=== PATIENT | male | born 1950 | race Caucasian/White ===

== ENCOUNTER 2020-03-29 08:51 | Inpatient (IN) | payer MEDICARE, OTHER ==
[~2020-03-29] VITALS: Ht 172.7 cm; Wt 84.4 kg
[2020-03-29] MEDS ORDERED: MAGNESIUM 2 G PREMIX 50 ML IV STA (09:02)
[2020-03-29] MEDS ORDERED: ALBUTEROL (0.083%) 2.5MG/3ML NEB HHN STA (09:02)
[2020-03-29] MEDS ORDERED: METHYLPREDNISOLONE SOD SUCC 125 MG/2 ML VIAL IV STA (09:02)
[2020-03-29] MEDS ORDERED: IPRATROPIUM BROMIDE (0.02%) 0.5MG/2.5ML NEB HHN STA (09:02)
[2020-03-29 09:32] LABS: BASOPHILS % 0.2 % (0.0-2.0); EOSINOPHILS % 0.2 % (0.0-5.0); HEMATOCRIT. 46.1 % (42.0-52.0); HEMOGLOBIN. 15.4 g/dL (14.0-18.0); LYMPHOCYTES % 12.2 % (20.0-50.0); MEAN CORPUSCULAR VOLUME 86.7 fL (80.0-94.0); MEAN PLATELET VOLUME 8.7 fl (7.4-10.4); MONOCYTES % 6.5 % (2.0-8.0); NEUTROPHILS % 80.9 % (40.0-76.0); PLATELET 148 x1000/uL (130-400); RED BLOOD CELL COUNT 5.31 mill/uL (4.7-6.1); RED CELL DISTRIBUTION WIDTH 14.2 % (11.6-14.6)
[2020-03-29 09:39] LABS: INR 1.1; PROTHROMBIN TIME 11.4 sec (9.6-11.0)
[2020-03-29 09:47] LABS: CHLORIDE 101 mEq/L (98-107)
[2020-03-29] MEDS ORDERED: AZITHROMYCIN 500 MG in DEXT 5% WATER 250 ML IV STA (09:58)
[2020-03-29] MEDS ORDERED: ONDANSETRON HCL 4MG/2ML INJ IV ONE (10:00)
[2020-03-29] MEDS ORDERED: CEFTRIAXONE 1 G PREMIX 50 ML IV ONE (10:00)
[2020-03-29] MEDS ORDERED: ALBUTEROL (0.083%) 2.5MG/3ML NEB ONE (10:12)
[2020-03-29] MEDS ORDERED: ALBUTEROL (0.5%) 2.5MG/0.5ML NEB HHN ONE (10:12)
[2020-03-29] MEDS ORDERED: IPRATROPIUM BROMIDE (0.02%) 0.5MG/2.5ML NEB ONE (10:13)
[2020-03-29 12:58] LABS: CLARITY URINE CLEAR (CLEAR); COLOR URINE DARK YELLOW (YELLOW); KETONES URINE 1+ (NEGATIVE); LEUKOCYTE ESTERASE URINE TRACE (NEGATIVE); NITRITE URINE NEGATIVE (NEGATIVE); OCCULT BLOOD URINE NEGATIVE (NEGATIVE); PROTEIN URINE TRACE (NEGATIVE); SPECIFIC GRAVITY URINE 1.026 (1.005-1.030); UROBILINOGEN URINE >8.0 E.U./dL (0.2-1.0)
[2020-03-29] MEDS ORDERED: ONDANSETRON HCL 4MG/2ML INJ IV PRN (14:00)
[2020-03-29] MEDS ORDERED: ACETAMINOPHEN 325MG TABLET PO PRN (14:00)
[2020-03-29] MEDS: ENOXAPARIN 40MG/0.4ML SYR SUBCUT SCH (15:43)
[2020-03-29 21:00] LABS: T4 FREE 1.33 ng/dL (0.76-1.46)
[2020-03-30] MEDS ORDERED: CEFTRIAXONE 1 G PREMIX 50 ML IV SCH (09:00)
[2020-03-30] MEDS ORDERED: AZITHROMYCIN 250 MG TABLET PO SCH (09:00)
[2020-03-30] MEDS: ENOXAPARIN 40MG/0.4ML SYR SUBCUT SCH (09:51)
[2020-03-30] MEDS ORDERED: P20 PO (11:06)
[2020-03-30 12:00] VITALS: BP 127/84
[2020-03-30] MEDS ORDERED: AZIT250T12 MT (17:54)
[2020-03-30] MEDS ORDERED: DEXA6TAB MT (17:54)
[2020-03-30 18:17] VITALS: BP 125/77
== END 2020-03-30 20:28 | disposition home or self-care (01) | DRG 177 ==
LOC: ER 09:00 → EDBEDREQ 10:04 → MICUSO 11:18 → EDBEDREQ 11:37 → 7EST 03-30 10:04
PROVIDERS: ADMIT Internal Medicine; ATTEND Internal Medicine
DX: U07.1 COVID-19 (principal); J96.01 Acute respiratory failure with hypoxia; J12.82 Pneumonia due to coronavirus disease 2019; E44.1 Mild protein-calorie malnutrition; E87.2 Acidosis; J45.901 Unspecified asthma with (acute) exacerbation; E87.1 Hypo-osmolality and hyponatremia; Z20.822 Contact with and (suspected) exposure to COVID-19; Z68.28 Body mass index [BMI] 28.0-28.9, adult; J39.8 Other specified diseases of upper respiratory tract
CPT/HCPCS: 36415; 71045; 80053; 81003; 83605; 83880; 84145; 84439; 84443; 84481; 84484; 85025; 93005; 94640; 99291; C9803; J0456; J0696; J1650; J2405; J2930; J3475; J7060; U0003

== ENCOUNTER 2024-11-24 10:15 | Inpatient (IN) | payer MEDICARE, MEDICAID ==
[~2024-11-24] VITALS: Ht 172.7 cm; Wt 79.0 kg
[~2024-11-24 10:15] MED LIST: AZIT250T12 MT; DEXA6TAB MT
[2024-11-24] MEDS: ASPIRIN 81MG TABLET PO ONE (10:31)
[2024-11-24 10:35] LABS: BASOPHILS % 0.8 % (0.0-2.0); EOSINOPHILS % 0.1 % (0.0-5.0); HEMATOCRIT. 24.0 % (42.0-52.0); HEMOGLOBIN. 7.3 g/dL (14.0-18.0); LYMPHOCYTES % 14.7 % (20.0-50.0); MEAN PLATELET VOLUME 8.6 fl (7.4-10.4); MONOCYTES % 4.6 % (2.0-8.0); NEUTROPHILS % 79.8 % (40.0-76.0); PLATELET 133 x1000/uL (130-400); RED BLOOD CELL COUNT 4.00 mill/uL (4.7-6.1); RED CELL DISTRIBUTION WIDTH 18.8 % (11.6-14.6)
[2024-11-24 10:37] LABS: ADD RBC MORPHOLOGY YES
[2024-11-24 10:50] LABS: CREATININE 0.9 mg/dL (0.6-1.3); UREA NITROGEN BLOOD 11 mg/dL (9-23)
[2024-11-24 10:51] LABS: TROPONIN I HIGH SENSITIVITY < 4 ng/L (3.0-53)
[2024-11-24 10:52] LABS: ASPARTATE AMINOTRANSFERASE 15 IU/L (<34); BILIRUBIN DIRECT 0.3 mg/dL (<=3.0); BILIRUBIN TOTAL 0.8 mg/dL (0.1-1.0); PROTEIN TOTAL 6.5 g/dL (6.0-8.3)
[2024-11-24 11:49] LABS: PLATELET ESTIMATE NORMAL
[2024-11-24] MEDS: SODIUM CHLORIDE 0.9% 500 ML IV ONE (13:09)
[2024-11-24 13:20] LABS: TROPONIN I HIGH SENSITIVITY < 4 ng/L (3.0-53)
[2024-11-24] MEDS ORDERED: LISI10TA26 PO (13:54)
[2024-11-24] MEDS ORDERED: TAMS-54 (13:54)
[2024-11-24] MEDS ORDERED: ACETAMINOPHEN 325MG TABLET PO PRN (14:00)
[2024-11-24] MEDS ORDERED: IPRATROPIUM/ALBUTEROL 0.5-3(2.5)MG/3ML NEB HHN PRN (14:00)
[2024-11-24] MEDS ORDERED: CLONIDINE 0.1MG TABLET PO PRN (14:00)
[2024-11-24 14:15] VITALS: BP 117/62; PULSE 58; RESP 20; TEMP 36.6; O2SAT 100
[2024-11-24 14:33] LABS: TRIGLYCERIDE 54 mg/dL (0-150)
[2024-11-24 14:34] LABS: LDL CHOLESTEROL 92 mg/dL (5-100)
[2024-11-24 14:35] LABS: PHOSPHORUS 1.6 mg/dL (2.5-4.9)
[2024-11-24 14:37] LABS: T4 FREE 1.11 ng/dL (0.89-1.76)
[2024-11-24 16:00] VITALS: BP 113/65; PULSE 77; RESP 18; TEMP 36.3; O2SAT 99
[2024-11-24 20:08] VITALS: BP 119/59; PULSE 97; RESP 20; TEMP 36.5; O2SAT 98
[2024-11-24] MEDS: IPRATROPIUM/ALBUTEROL 0.5-3(2.5)MG/3ML NEB HHN SCH (20:20)
[2024-11-24 20:33] VITALS: PULSE 60; RESP 20; O2SAT 100
[2024-11-24] MEDS ORDERED: BRIM15DR8 EACHEYE (21:03)
[2024-11-24] MEDS ORDERED: FINA1TAB14 PO (21:03)
[2024-11-24] MEDS: ENOXAPARIN 40MG/0.4ML SYR SUBCUT SCH (21:40)
[2024-11-24] MEDS: SODIUM PHOSPHATE 15 MMOL in DEXT 5% WATER 245 ML IV SCH (21:40)
[2024-11-24] MEDS ORDERED: *PATIENT'S OWN MEDICATION STORAGE XX SCH (23:00)
[2024-11-25] VITALS (29 sets, daily range): BP systolic 101–140; BP diastolic 59–96; PULSE 57–97; RESP 15–31; TEMP 36–37.44744; O2SAT 94–100
[2024-11-25 07:51] LABS: CLARITY URINE CLEAR (CLEAR); COLOR URINE YELLOW (YELLOW); GLUCOSE URINE NEGATIVE (NEGATIVE); KETONES URINE NEGATIVE (NEGATIVE); LEUKOCYTE ESTERASE URINE NEGATIVE (NEGATIVE); NITRITE URINE NEGATIVE (NEGATIVE); OCCULT BLOOD URINE NEGATIVE (NEGATIVE); PH URINE 6.0 (4.5-8.0); PROTEIN URINE NEGATIVE (NEGATIVE); SPECIFIC GRAVITY URINE 1.016 (1.005-1.030); UROBILINOGEN URINE 1.0 E.U./dL (0.2-1.0)
[2024-11-25 07:56] LABS: BASOPHILS % 1.0 % (0.0-2.0); EOSINOPHILS % 7.0 % (0.0-5.0); LYMPHOCYTES % 25.9 % (20.0-50.0); MONOCYTES % 12.8 % (2.0-8.0); NEUTROPHILS % 53.3 % (40.0-76.0); RED BLOOD CELL COUNT 3.78 mill/uL (4.7-6.1); RED CELL DISTRIBUTION WIDTH 19.1 % (11.6-14.6)
[2024-11-25 08:07] LABS: *AMPHETAMINES SCREEN URINE NEGATIVE (NEGATIVE); *BARBITURATES SCREEN URINE NEGATIVE (NEGATIVE); *BENZODIAZEPINES SCREEN URINE NEGATIVE (NEGATIVE); *COCAINE SCREEN URINE NEGATIVE (NEGATIVE); CANNABINOID URINE SCREEN NEGATIVE (NEGATIVE); ECSTASY MDMA SCREEN URINE NEGATIVE (NEGATIVE); METHADONE URINE SCREEN NEGATIVE (NEGATIVE); OPIATES URINE SCREEN NEGATIVE (NEGATIVE); PHENCYCLIDINE URINE SCREEN NEGATIVE (NEGATIVE)
[2024-11-25 08:11] LABS: CREATININE 0.9 mg/dL (0.6-1.3); HEMOGLOBIN. 6.8 g/dL (14.0-18.0); TROPONIN I HIGH SENSITIVITY 4 ng/L (3.0-53)
[2024-11-25 08:12] LABS: ADD RBC MORPHOLOGY NO; HEMATOCRIT. 22.5 % (42.0-52.0); UREA NITROGEN BLOOD 12 mg/dL (9-23)
[2024-11-25 09:30] LABS: MEAN PLATELET VOLUME 9.3 fl (7.4-10.4)
[2024-11-25 09:31] LABS: PLATELET 120 x1000/uL (130-400)
[2024-11-25] MEDS: FERROUS SULFATE 325MG TABLET PO SCH (09:40)
[2024-11-25] MEDS ORDERED: METOPROLOL TARTRATE 5MG/5ML VIAL IV PRN ×2 (09:45→12:30)
[2024-11-25] MEDS: METHYLPREDNISOLONE SOD SUCC 125MG/2ML (ACT-O-VIAL) IV SCH (13:12)
[2024-11-25] MEDS: LORATADINE 10MG TABLET PO SCH (13:12)
[2024-11-25] MEDS: MONTELUKAST SODIUM 10MG TABLET PO SCH (13:13)
[2024-11-25] MEDS: FAMOTIDINE 20MG/2ML VIAL IV SCH (13:13)
[2024-11-25 13:18] LABS: TRIGLYCERIDE 78.0 mg/dL (0-150)
[2024-11-25 13:19] LABS: LDL CHOLESTEROL 82.0 mg/dL (5-100)
[2024-11-25 13:22] LABS: T4 FREE 1.23 ng/dL (0.89-1.76)
[2024-11-25] MEDS: ONDANSETRON HCL 4MG/2ML INJ IV PRN (13:27)
[2024-11-25] MEDS: IPRATROPIUM/ALBUTEROL 0.5-3(2.5)MG/3ML NEB HHN SCH (15:03)
[2024-11-25] MEDS: FUROSEMIDE 20MG/2ML VIAL IVP NR (19:04)
[2024-11-25 19:12] LABS: CREATINE KINASE MB FRACTION 1.1 ng/mL (0.5-3.6)
[2024-11-25 19:13] LABS: TROPONIN I HIGH SENSITIVITY 4.0 ng/L (3.0-53)
[2024-11-25 22:29] LABS: CREATINE KINASE MB FRACTION 1.1 ng/mL (0.5-3.6); TROPONIN I HIGH SENSITIVITY < 4 ng/L (3.0-53)
[2024-11-26] VITALS (22 sets, daily range): BP systolic 100–151; BP diastolic 58–111; PULSE 61–95; RESP 11–31; TEMP 36.6–36.9; O2SAT 95–100
[2024-11-26 05:40] LABS: CREATINE KINASE MB FRACTION 1.2 ng/mL (0.5-3.6)
[2024-11-26 05:41] LABS: CREATININE 0.9 mg/dL (0.6-1.3); TROPONIN I HIGH SENSITIVITY < 4 ng/L (3.0-53); UREA NITROGEN BLOOD 13 mg/dL (9-23)
[2024-11-26 05:53] LABS: BASOPHILS % 0.1 % (0.0-2.0); EOSINOPHILS % 0.0 % (0.0-5.0); HEMATOCRIT. 28.8 % (42.0-52.0); HEMOGLOBIN. 8.9 g/dL (14.0-18.0); LYMPHOCYTES % 7.8 % (20.0-50.0); MEAN PLATELET VOLUME 9.0 fl (7.4-10.4); MONOCYTES % 2.2 % (2.0-8.0); NEUTROPHILS % 89.9 % (40.0-76.0); PLATELET 115 x1000/uL (130-400); RED BLOOD CELL COUNT 4.55 mill/uL (4.7-6.1); RED CELL DISTRIBUTION WIDTH 22.4 % (11.6-14.6)
[2024-11-26 06:50] LABS: ADD RBC MORPHOLOGY NO
[2024-11-26] MEDS: IRON SUCROSE COMPLEX 100 MG/5 ML ML IV SCH (09:53)
[2024-11-26] MEDS: IOHEXOL-350 100 ML BOTTLE ONE (11:39)
[2024-11-26] MEDS ORDERED: METHYLPREDNISOLONE SOD SUCC 40MG/ML (ACT-O-VIAL) IV SCH (14:00)
[2024-11-26] MEDS: METHYLPREDNISOLONE SOD SUCC 40MG/ML (ACT-O-VIAL) IV SCH (21:47)
[2024-11-27] VITALS (16 sets, daily range): BP systolic 99–135; BP diastolic 58–82; PULSE 61–86; RESP 10–27; TEMP 36.2–36.8; O2SAT 93–98
[2024-11-27 05:45] LABS: HEMATOCRIT. 27.1 % (42.0-52.0); HEMOGLOBIN. 8.6 g/dL (14.0-18.0); RED BLOOD CELL COUNT 4.32 mill/uL (4.7-6.1); RED CELL DISTRIBUTION WIDTH 21.6 % (11.6-14.6)
[2024-11-27 05:53] LABS: CREATININE 0.9 mg/dL (0.6-1.3)
[2024-11-27 05:54] LABS: UREA NITROGEN BLOOD 15 mg/dL (9-23)
[2024-11-27 05:56] LABS: PHOSPHORUS 2.9 mg/dL (2.5-4.9)
[2024-11-27 11:27] LABS: MEAN PLATELET VOLUME 9.8 fl (7.4-10.4); PLATELET 138 x1000/uL (130-400)
[2024-11-27 11:31] LABS: LYMPHOCYTES % MANUAL 4.0 % (20.0-50.0); MONOCYTES % MANUAL 2.0 % (2.0-8.0); NEUTROPHILS % MANUAL 94.0 % (45.0-75.0)
[2024-11-27 11:32] LABS: PLATELET ESTIMATE NORMAL
[2024-11-28] VITALS (21 sets, daily range): BP systolic 110–170; BP diastolic 68–108; PULSE 55–79; RESP 13–29; TEMP 36.4–36.78072; O2SAT 93–98
[2024-11-28 08:23] LABS: PLATELET 152 x1000/uL (130-400); RED BLOOD CELL COUNT 4.59 mill/uL (4.7-6.1); RED CELL DISTRIBUTION WIDTH 22.8 % (11.6-14.6)
[2024-11-28 08:37] LABS: CREATININE 0.8 mg/dL (0.6-1.3)
[2024-11-28 08:38] LABS: UREA NITROGEN BLOOD 14 mg/dL (9-23)
[2024-11-28] MEDS: METHYLPREDNISOLONE SOD SUCC 40MG/ML (ACT-O-VIAL) IV SCH (08:48)
[2024-11-28] MEDS: LOSARTAN 25 MG TABLET PO SCH (08:49)
[2024-11-28] MEDS ORDERED: HEPARIN 1000 UNITS/ML 10ML ONE (09:00)
[2024-11-28] MEDS ORDERED: VERAPAMIL HCL 2.5 MG/1 ML 2ML VIAL IV ONE (09:00)
[2024-11-28] MEDS ORDERED: LIDOCAINE HCL 1% 20ML VIAL ONE (09:00)
[2024-11-28] MEDS ORDERED: LOSARTAN 25 MG TABLET PO SCH (09:00)
[2024-11-28] MEDS ORDERED: IODIXANOL 320MG/ML 100 ML BOTTLE IV ONE ×2 (09:01→10:28)
[2024-11-28] MEDS ORDERED: NITROGLYCERIN 0.4MG TABLET SL SL PRN (09:15)
[2024-11-28] MEDS ORDERED: MIDAZOLAM HCL 2 MG/2 ML VIAL ONE (09:39)
[2024-11-28] MEDS ORDERED: FENTANYL CITRATE/PF 50MCG/ML 2ML VIAL ONE (09:39)
[2024-11-28] MEDS ORDERED: METOPROLOL TARTRATE 5MG/5ML VIAL IV ONE (10:28)
[2024-11-28] MEDS ORDERED: ATROPINE SULFATE 1MG/10ML SYR IV PRN (11:00)
[2024-11-28] MEDS: SODIUM CHLORIDE 0.45% 1,000 ML IV SCH (11:30)
[2024-11-28] MEDS: METOPROLOL TARTRATE 25MG TABLET PO SCH (12:19)
[2024-11-28] MEDS: EPOETIN ALFA-EPBX 10,000 UNITS/ML VIAL SUBCUT NR (12:20)
[2024-11-28] MEDS ORDERED: AMIODARONE HCL 900 MG in DEXT 5% WATER 482 ML IV SCH (13:30)
[2024-11-28 19:01] LABS: CLARITY URINE CLEAR (CLEAR); COLOR URINE YELLOW (YELLOW); GLUCOSE URINE NEGATIVE (NEGATIVE); KETONES URINE NEGATIVE (NEGATIVE); LEUKOCYTE ESTERASE URINE NEGATIVE (NEGATIVE); NITRITE URINE NEGATIVE (NEGATIVE); OCCULT BLOOD URINE NEGATIVE (NEGATIVE); PH URINE 8.5 (4.5-8.0); PROTEIN URINE NEGATIVE (NEGATIVE); SPECIFIC GRAVITY URINE 1.028 (1.005-1.030); UROBILINOGEN URINE 1.0 E.U./dL (0.2-1.0)
[2024-11-28] MEDS: DOCUSATE SODIUM 100MG CAPSULE PO SCH (20:51)
[2024-11-28] MEDS: ACETAMINOPHEN 325MG TABLET PO PRN (20:51)
[2024-11-28] MEDS: ALLOPURINOL 300 MG TABLET PO SCH (20:54)
[2024-11-28] MEDS: ASCORBIC ACID 500 MG TABLET PO SCH (20:54)
[2024-11-28] MEDS ORDERED: BISACODYL 10MG SUPP PR PRN (21:00)
[2024-11-28] MEDS: CHLORHEXIDINE GLUCONATE 4% EXTERNAL USE TOP SCH (21:34)
[2024-11-28] MEDS: TAMSULOSIN HCL 0.4MG SR CAPSULE PO SCH (23:04)
[2024-11-28] MEDS: LOSARTAN 25 MG TABLET PO NR (23:05)
[2024-11-29] VITALS (57 sets, daily range): BP systolic 101–143; BP diastolic 60–94; PULSE 45–90; RESP 14–33; TEMP 36.44736–37.8; O2SAT 93–100
[2024-11-29 04:14] LABS: HEMATOCRIT. 35.2 % (42.0-52.0); HEMOGLOBIN. 11.1 g/dL (14.0-18.0); RED BLOOD CELL COUNT 5.14 mill/uL (4.7-6.1); RED CELL DISTRIBUTION WIDTH 28.3 % (11.6-14.6)
[2024-11-29 04:29] LABS: CREATININE 0.8 mg/dL (0.6-1.3)
[2024-11-29 04:30] LABS: UREA NITROGEN BLOOD 15 mg/dL (9-23)
[2024-11-29 04:32] LABS: PHOSPHORUS 4.2 mg/dL (2.5-4.9)
[2024-11-29] MEDS: CHLORHEXIDINE GLUCONATE 4% EXTERNAL USE TOP SCH (05:00)
[2024-11-29 05:16] LABS: LYMPHOCYTES % MANUAL 15.0 % (20.0-50.0); MONOCYTES % MANUAL 11.0 % (2.0-8.0); NEUTROPHILS % MANUAL 74.0 % (45.0-75.0); NUCLEATED RED BLOOD CELLS 1 /100 WBC
[2024-11-29 05:20] LABS: PLATELET 119 x1000/uL (130-400)
[2024-11-29 05:25] LABS: PLATELET ESTIMATE NORMAL
[2024-11-29] MEDS ORDERED: INSULIN REGULAR 100 U/100 ML PREMIX IV PRN (06:15)
[2024-11-29] MEDS ORDERED: NICARDIPINE 40MG/200ML PREMIX 200 ML IV PRN (06:15)
[2024-11-29] MEDS ORDERED: EPINEPHRINE 5 MG in DEXT 5% WATER 250 ML IV PRN (06:15)
[2024-11-29] MEDS ORDERED: DOBUTAMINE 250 MG/250 ML PREMIX IV PRN (06:15)
[2024-11-29] MEDS: DEL NIDO CARDIOPLEGIA 1,000 ML (PREMIX) IV ONE ×2 (06:15)
[2024-11-29] MEDS ORDERED: NOREPINEPHRINE 8MG/250ML PMX 250 ML IV PRN (06:15)
[2024-11-29] MEDS ORDERED: HEPARIN 1000 UNITS/ML 10ML ONE ×3 (06:38→10:10)
[2024-11-29] MEDS ORDERED: SEVOFLURANE 250 ML LIQUID INH ONE (06:38)
[2024-11-29] MEDS ORDERED: DEXMEDETOMIDINE 250 ML IV ONE (06:39)
[2024-11-29] MEDS ORDERED: NITROGLYCERIN 50MG PREMIX 250 ML IV ONE (06:39)
[2024-11-29] MEDS: VANCOMYCIN 1GM/200ML PMX (BAXTER) IV NR (06:45)
[2024-11-29] MEDS ORDERED: PROPOFOL 10MG/ML 100ML 100 ML IV ONE (07:08)
[2024-11-29] MEDS ORDERED: THROMBIN (BOVINE) 5000 UNITS/VIAL TOP ONE (07:09)
[2024-11-29] MEDS ORDERED: ROCURONIUM BROMIDE 10MG/ML VIAL 5ML IV ONE ×3 (07:23→09:04)
[2024-11-29] MEDS ORDERED: FENTANYL CITRATE/PF 50MCG/ML 5ML VIAL ONE (07:36)
[2024-11-29] MEDS ORDERED: POLYMYXIN B SULFATE 500000 UNITS/VIAL ONE (07:54)
[2024-11-29] MEDS: PREDNISONE 10MG TABLET PO SCH (09:00)
[2024-11-29] MEDS: LOSARTAN 50 MG TABLET PO SCH (09:00)
[2024-11-29] MEDS ORDERED: ACETAMINOPHEN 1000MG/100ML 100 ML IV ONE (09:23)
[2024-11-29] MEDS ORDERED: PROTAMINE SULFATE 10MG/ML VIAL 25ML IV ONE (09:54)
[2024-11-29] MEDS ORDERED: METOPROLOL TARTRATE 5MG/5ML VIAL IV ONE (09:59)
[2024-11-29] MEDS ORDERED: AMINOCAPROIC ACID 250 MG/ML 20ML VIAL ONE ×2 (09:59→10:10)
[2024-11-29] MEDS ORDERED: ONDANSETRON HCL 4MG/2ML INJ ONE ×2 (09:59→10:49)
[2024-11-29] MEDS ORDERED: LIDOCAINE HCL 2% 5ML SYRINGE IV ONE ×2 (09:59→10:10)
[2024-11-29] MEDS ORDERED: FUROSEMIDE 100MG/10ML VIAL ONE ×2 (10:04→10:05)
[2024-11-29] MEDS ORDERED: CEFAZOLIN SODIUM 1000MG/VIAL ONE (10:05)
[2024-11-29] MEDS ORDERED: MAGNESIUM SULFATE 5GM/10ML VIAL IV ONE ×2 (10:06→10:10)
[2024-11-29] MEDS ORDERED: ALBUMIN HUMAN 25GM/100ML (25%) IV ONE (10:10)
[2024-11-29] MEDS ORDERED: HEPARIN 10,000 UNITS/ML VIAL ONE (10:10)
[2024-11-29] MEDS ORDERED: CALCIUM CHLORIDE 1GM/10ML SYR IV ONE ×2 (10:10→11:03)
[2024-11-29] MEDS ORDERED: POTASSIUM CHLORIDE 40MEQ/20ML INJ IV ONE (10:10)
[2024-11-29] MEDS ORDERED: MANNITOL 20% (20GM/100ML) BAG 500ML PREMIX IV ONE (10:10)
[2024-11-29] MEDS ORDERED: FUROSEMIDE 20MG/2ML VIAL ONE (10:10)
[2024-11-29] MEDS ORDERED: PHENYLEPHRINE HCL 10MG/ML 1ML IV ONE (10:10)
[2024-11-29] MEDS ORDERED: SODIUM BICARBONATE 8.4% 50MEQ/50ML SYR IV ONE ×2 (10:10→11:07)
[2024-11-29] MEDS ORDERED: DEXAMETHASONE 4MG/ML 1ML VIAL ONE (10:49)
[2024-11-29] MEDS ORDERED: OXYCODONE HCL/ACETAMINOPHEN 5/325MG TABLET PO PRN (11:00)
[2024-11-29] MEDS: BLOOD SUGAR DIAGNOSTIC STRIP TEST SCH (11:00)
[2024-11-29] MEDS ORDERED: CALCIUM CHLORIDE 5,000 MG in DEXT 5% WATER 500 ML IV PRN (11:00)
[2024-11-29] MEDS ORDERED: KCL 10MEQ/50ML PREMIX 200 ML IV PRN (11:00)
[2024-11-29] MEDS ORDERED: EPINEPHRINE 5 MG in DEXT 5% WATER 245 ML IV SCH (11:00)
[2024-11-29] MEDS ORDERED: KCL 10MEQ/50ML PREMIX 150 ML IV PRN (11:00)
[2024-11-29] MEDS ORDERED: ALBUMIN HUMAN 25GM/100ML (25%) IV PRN (11:00)
[2024-11-29] MEDS ORDERED: DEXTROSE 50% WATER 50ML SYRINGE IV PRN ×2 (11:00)
[2024-11-29] MEDS ORDERED: NALOXONE HCL 0.4MG/ML 1ML VIAL ONE (11:14)
[2024-11-29] MEDS: DEXT 5%/0.45% NACL 1000ML 1,000 ML IV SCH (11:41)
[2024-11-29] MEDS: INSULIN REGULAR 100U/100ML PMX 100 ML IV SCH (11:42)
[2024-11-29 11:43] LABS: HEMATOCRIT. 33.5 % (42.0-52.0); HEMOGLOBIN. 10.7 g/dL (14.0-18.0); RED BLOOD CELL COUNT 4.93 mill/uL (4.7-6.1); RED CELL DISTRIBUTION WIDTH 28.0 % (11.6-14.6)
[2024-11-29] MEDS: DOPAMINE 400 MG PREMIX 250 ML IV PRN (11:43)
[2024-11-29] MEDS: AMINOCAPROIC ACID 5,000 MG in SODIUM CHLORIDE 0.9% 250 ML IV PRN (11:44)
[2024-11-29 11:45] LABS: INR 1.3
[2024-11-29 11:48] LABS: BG BASE EXCESS 1.5 mmol/L (-2.0-3.0); BG CARBOXYHEMOGLOBIN 1.3 % (0.5-1.5); BG DEOXYHEMOGLOBIN 1.9 % (0.0-5.0); BG FLOW(L/min) 10.00 L/min; BG FRACTION INSPIRED OXYGEN 100; BG HCO3 ACT 25.0 mmol/L (21.0-28.0); BG METHEMOGLOBIN 0.1 % (0.5-1.5); BG OXYGEN SATURATION 98.1 % (94.0-98.0); BG OXYHEMOGLOBIN 96.7 % (94.0-98.0); BG PCO2 35.5 mmHg (35.0-48.0); BG PH 7.465 (7.350-7.450); BG PO2 103.5 mmHg (83.0-108.0); BG SAMPLE SITE ALINE; BG TOTAL HEMOGLOBIN 11.9 g/dL (13.5-17.5); BG VENT MODE MASK - NRB
[2024-11-29 11:49] LABS: CREATININE 1.0 mg/dL (0.6-1.3)
[2024-11-29 11:50] LABS: UREA NITROGEN BLOOD 13 mg/dL (9-23)
[2024-11-29 11:51] LABS: ASPARTATE AMINOTRANSFERASE 45 IU/L (<34)
[2024-11-29 11:52] LABS: BILIRUBIN TOTAL 1.7 mg/dL (0.1-1.0); PHOSPHORUS 2.7 mg/dL (2.5-4.9); PROTEIN TOTAL 5.8 g/dL (6.0-8.3)
[2024-11-29] MEDS: DEXMEDETOMIDINE 100 ML IV PRN (11:52)
[2024-11-29] MEDS ORDERED: SODIUM CHLORIDE 0.9% 500 ML IV PRN (12:00)
[2024-11-29] MEDS: EPINEPHRINE 5 MG in DEXT 5% WATER 245 ML IV SCH (12:15)
[2024-11-29] MEDS: ALBUMIN HUMAN 12.5G/250ML (5%) IV PRN (12:41)
[2024-11-29 12:45] LABS: PLATELET 104 x1000/uL (130-400)
[2024-11-29] MEDS ORDERED: NALOXONE HCL 0.4MG/ML VIAL IV PRN (12:45)
[2024-11-29 12:51] LABS: BAND% 8.0 % (1.0-6.0); EOSINOPHILS % MANUAL 1.0 % (0.0-5.0); LYMPHOCYTES % MANUAL 16.0 % (20.0-50.0); METAMYELOCYTES % 1.0 % (0-0); MONOCYTES % MANUAL 6.0 % (2.0-8.0); NEUTROPHILS % MANUAL 68.0 % (45.0-75.0); NUCLEATED RED BLOOD CELLS 1 /100 WBC; PLATELET ESTIMATE SLIGHTLY DECREASED
[2024-11-29] MEDS: IPRATROPIUM/ALBUTEROL 0.5-3(2.5)MG/3ML NEB HHN SCH (16:30)
[2024-11-29] MEDS: ACETAMINOPHEN 325MG TABLET PO PRN (17:27)
[2024-11-29] MEDS: CEFAZOLIN 1000MG PREMIX 50 ML IV SCH (17:27)
[2024-11-29 17:28] LABS: PLATELET 132 x1000/uL (130-400); RED BLOOD CELL COUNT 4.99 mill/uL (4.7-6.1); RED CELL DISTRIBUTION WIDTH 27.7 % (11.6-14.6)
[2024-11-29 17:41] LABS: CREATININE 1.1 mg/dL (0.6-1.3); UREA NITROGEN BLOOD 15 mg/dL (9-23)
[2024-11-29 17:44] LABS: PHOSPHORUS 2.7 mg/dL (2.5-4.9)
[2024-11-29] MEDS: KCL 10MEQ/50ML PREMIX 100 ML IV PRN (17:52)
[2024-11-29] MEDS ORDERED: BACITRACIN 14GM TUBE TOP SCH (21:00)
[2024-11-29] MEDS: KETOROLAC 15MG/ML VIAL IV PRN (21:04)
[2024-11-29 23:18] LABS: RED BLOOD CELL COUNT 4.73 mill/uL (4.7-6.1); RED CELL DISTRIBUTION WIDTH 28.3 % (11.6-14.6)
[2024-11-29 23:30] LABS: CREATININE 0.9 mg/dL (0.6-1.3); UREA NITROGEN BLOOD 16 mg/dL (9-23)
[2024-11-29 23:32] LABS: PHOSPHORUS 5.6 mg/dL (2.5-4.9)
[2024-11-30] VITALS (108 sets, daily range): BP systolic 74–198; BP diastolic 48–181; PULSE 67–102; RESP 16–36; TEMP 36.6–38; O2SAT 90–100
[2024-11-30 00:11] LABS: PLATELET 104 x1000/uL (130-400)
[2024-11-30] MEDS: MAGNESIUM 1 G PREMIX 100 ML IV PRN (00:26)
[2024-11-30] MEDS: DOPAMINE 400MG/250ML PREMIX 250 ML IV PRN (01:22)
[2024-11-30 04:41] LABS: BG BASE EXCESS 3.9 mmol/L (-2.0-3.0); BG CARBOXYHEMOGLOBIN 0.9 % (0.5-1.5); BG DEOXYHEMOGLOBIN 1.3 % (0.0-5.0); BG FRACTION INSPIRED OXYGEN 21; BG HCO3 ACT 27.3 mmol/L (21.0-28.0); BG METHEMOGLOBIN 0.3 % (0.5-1.5); BG OXYGEN SATURATION 98.7 % (94.0-98.0); BG OXYHEMOGLOBIN 97.5 % (94.0-98.0); BG PCO2 36.8 mmHg (35.0-48.0); BG PH 7.488 (7.350-7.450); BG PO2 117.3 mmHg (83.0-108.0); BG SAMPLE SITE ALINE; BG TOTAL HEMOGLOBIN 11.4 g/dL (13.5-17.5); BG VENT MODE ROOM AIR
[2024-11-30 04:55] LABS: HEMATOCRIT. 31.8 % (42.0-52.0); HEMOGLOBIN. 10.2 g/dL (14.0-18.0); RED BLOOD CELL COUNT 4.64 mill/uL (4.7-6.1); RED CELL DISTRIBUTION WIDTH 28.6 % (11.6-14.6)
[2024-11-30 05:10] LABS: CREATININE 0.8 mg/dL (0.6-1.3)
[2024-11-30 05:11] LABS: UREA NITROGEN BLOOD 17 mg/dL (9-23)
[2024-11-30 06:20] LABS: EOSINOPHILS % MANUAL 1.0 % (0.0-5.0); LYMPHOCYTES % MANUAL 6.0 % (20.0-50.0); MONOCYTES % MANUAL 13.0 % (2.0-8.0); NEUTROPHILS % MANUAL 80.0 % (45.0-75.0); NUCLEATED RED BLOOD CELLS 3 /100 WBC
[2024-11-30 06:23] LABS: MEAN PLATELET VOLUME 9.2 fl (7.4-10.4); PLATELET 103 x1000/uL (130-400); PLATELET ESTIMATE NORMAL
[2024-11-30] MEDS: ACETAMINOPHEN 325MG TABLET PO PRN (08:15)
[2024-11-30] MEDS: FUROSEMIDE 40MG/4ML VIAL IVP NR (08:16)
[2024-11-30] MEDS: MIDODRINE HCL 5MG TABLET PO SCH (08:16)
[2024-11-30] MEDS: ASPIRIN 81MG TABLET PO SCH (08:16)
[2024-11-30] MEDS: FAMOTIDINE 20MG/2ML VIAL IV SCH (08:16)
[2024-11-30] MEDS: OXYCODONE HCL/ACETAMINOPHEN 5/325MG TABLET PO PRN (09:22)
[2024-11-30] MEDS: ONDANSETRON HCL 4MG/2ML INJ IV PRN (12:07)
[2024-12-01] VITALS (91 sets, daily range): BP systolic 86–158; BP diastolic 48–114; PULSE 72–170; RESP 11–33; TEMP 36.6–37.1; O2SAT 93–100
[2024-12-01] MEDS: AMIODARONE 150MG/100ML D5W 100 ML IV NR (00:10)
[2024-12-01] MEDS: AMIODARONE HCL 900 MG in DEXT 5% WATER 482 ML IV SCH (00:25)
[2024-12-01] MEDS: DOCUSATE SODIUM 100MG CAPSULE PO PRN (02:54)
[2024-12-01 06:25] LABS: HEMATOCRIT. 31.1 % (42.0-52.0); HEMOGLOBIN. 10.0 g/dL (14.0-18.0); RED BLOOD CELL COUNT 4.51 mill/uL (4.7-6.1); RED CELL DISTRIBUTION WIDTH 30.2 % (11.6-14.6)
[2024-12-01 06:30] LABS: CREATININE 0.9 mg/dL (0.6-1.3)
[2024-12-01 06:31] LABS: UREA NITROGEN BLOOD 23 mg/dL (9-23)
[2024-12-01 06:56] LABS: PLATELET 96 x1000/uL (130-400)
[2024-12-01 06:59] LABS: BAND% 1.0 % (1.0-6.0); EOSINOPHILS % MANUAL 1.0 % (0.0-5.0); LYMPHOCYTES % MANUAL 7.0 % (20.0-50.0); METAMYELOCYTES % 1.0 % (0-0); MONOCYTES % MANUAL 16.0 % (2.0-8.0); NEUTROPHILS % MANUAL 74.0 % (45.0-75.0); PLATELET ESTIMATE SLIGHTLY DECREASED
[2024-12-01] MEDS: AMIODARONE 200MG TABLET PO SCH (09:01)
[2024-12-01] MEDS: MIDODRINE HCL 5MG TABLET PO NR (12:59)
[2024-12-01] MEDS ORDERED: CALCIUM GLUCONATE 1,000 MG in DEXT 5% WATER 90 ML IV ONE (13:00)
[2024-12-01] MEDS: CALCIUM CHLORIDE 3,000 MG in DEXT 5% WATER 250 ML IV PRN (14:17)
[2024-12-01] MEDS: FUROSEMIDE 40MG/4ML VIAL IVP SCH (14:40)
[2024-12-01] MEDS: MIDODRINE HCL 5MG TABLET PO SCH (16:11)
[2024-12-01] MEDS: MINERAL OIL 30ML BOTTLE PO SCH (21:07)
[2024-12-02] VITALS (104 sets, daily range): BP systolic 67–162; BP diastolic 33–93; PULSE 68–120; RESP 15–34; TEMP 36.4–37.1; O2SAT 91–100
[2024-12-02 05:47] LABS: HEMATOCRIT. 31.8 % (42.0-52.0); HEMOGLOBIN. 9.9 g/dL (14.0-18.0); RED BLOOD CELL COUNT 4.39 mill/uL (4.7-6.1); RED CELL DISTRIBUTION WIDTH 32.0 % (11.6-14.6)
[2024-12-02 06:12] LABS: CREATININE 0.8 mg/dL (0.6-1.3)
[2024-12-02 06:13] LABS: UREA NITROGEN BLOOD 17 mg/dL (9-23)
[2024-12-02] MEDS ORDERED: TAMS-54 PO (07:56)
[2024-12-02] MEDS ORDERED: DORZ10DR9 EACHEYE (07:56)
[2024-12-02] MEDS ORDERED: FINA5TAB11 PO (07:57)
[2024-12-02] MEDS: FINASTERIDE 5MG TABLET PO NR (08:12)
[2024-12-02] MEDS: TAMSULOSIN HCL 0.4MG SR CAPSULE PO NR (08:12)
[2024-12-02] MEDS: MAGNESIUM SULFATE 3 GM in DEXT 5% WATER 100 ML IV PRN (08:14)
[2024-12-02] MEDS ORDERED: FINASTERIDE 5MG TABLET PO SCH (09:00)
[2024-12-02 10:11] LABS: EOSINOPHILS % MANUAL 5.0 % (0.0-5.0); LYMPHOCYTES % MANUAL 7.0 % (20.0-50.0); MONOCYTES % MANUAL 6.0 % (2.0-8.0); NEUTROPHILS % MANUAL 82.0 % (45.0-75.0)
[2024-12-02 10:12] LABS: PLATELET ESTIMATE SLIGHTLY DECREASED
[2024-12-02 10:14] LABS: MEAN PLATELET VOLUME 8.9 fl (7.4-10.4); PLATELET 93 x1000/uL (130-400)
[2024-12-02] MEDS: MAGNESIUM 4 G PREMIX 100 ML IV NR (10:30)
[2024-12-02] MEDS: CALCIUM GLUCONATE 3,000 MG in DEXT 5% WATER 70 ML IV NR (11:24)
[2024-12-02] MEDS: EPINEPHRINE 5 MG in DEXT 5% WATER 245 ML IV PRN (11:25)
[2024-12-02] MEDS: FUROSEMIDE 40MG/4ML VIAL IVP NR (11:57)
[2024-12-02] MEDS ORDERED: DEXTROSE 50% WATER 50ML SYRINGE IV PRN ×2 (15:45→17:30)
[2024-12-02] MEDS ORDERED: INSULIN LISPRO 100 UNITS/ML SUBCUT PRN (16:00)
[2024-12-02 16:39] LABS: BG BASE EXCESS -0.1 mmol/L (-2.0-3.0); BG CARBOXYHEMOGLOBIN 1.2 % (0.5-1.5); BG DEOXYHEMOGLOBIN 4.9 % (0.0-5.0); BG FLOW(L/min) 2.00 L/min; BG FRACTION INSPIRED OXYGEN 28; BG HCO3 ACT 22.9 mmol/L (21.0-28.0); BG METHEMOGLOBIN 0.2 % (0.5-1.5); BG OXYGEN SATURATION 95.0 % (94.0-98.0); BG OXYHEMOGLOBIN 93.7 % (94.0-98.0); BG PCO2 31.5 mmHg (35.0-48.0); BG PH 7.479 (7.350-7.450); BG PO2 75.6 mmHg (83.0-108.0); BG SAMPLE SITE LEFT RADIAL; BG TOTAL HEMOGLOBIN 10.4 g/dL (13.5-17.5); BG VENT MODE NASAL CANNULA
[2024-12-02] MEDS: METHYLPREDNISOLONE SOD SUCC 125MG/2ML (ACT-O-VIAL) IV SCH (16:59)
[2024-12-02] MEDS: MIDODRINE HCL 5MG TABLET PO SCH (17:00)
[2024-12-02] MEDS: ALBUMIN HUMAN 12.5G/250ML (5%) IV SCH ×2 (17:05→18:13)
[2024-12-02] MEDS: INSULIN LISPRO 100 UNITS/ML SUBCUT SCH ×2 (17:14→18:02)
[2024-12-02] MEDS: BLOOD SUGAR DIAGNOSTIC STRIP TEST SCH (17:46)
[2024-12-02] MEDS ORDERED: INSULIN LISPRO 100 UNITS/ML SUBCUT SCH (18:20)
[2024-12-03] VITALS (71 sets, daily range): BP systolic 77–155; BP diastolic 30–118; PULSE 76–107; RESP 12–31; TEMP 36.6–36.9; O2SAT 92–100
[2024-12-03 06:58] LABS: HEMATOCRIT. 29.3 % (42.0-52.0); HEMOGLOBIN. 9.1 g/dL (14.0-18.0); RED BLOOD CELL COUNT 4.03 mill/uL (4.7-6.1); RED CELL DISTRIBUTION WIDTH 32.9 % (11.6-14.6)
[2024-12-03 07:15] LABS: CREATININE 0.8 mg/dL (0.6-1.3); UREA NITROGEN BLOOD 20 mg/dL (9-23)
[2024-12-03 07:17] LABS: PHOSPHORUS 3.9 mg/dL (2.5-4.9)
[2024-12-03] MEDS: MIDODRINE HCL 5MG TABLET PO SCH (08:34)
[2024-12-03] MEDS: FINASTERIDE 5MG TABLET PO SCH (08:36)
[2024-12-03] MEDS: SODIUM ZIRCONIUM CYCLOSILICATE 10GM/PACKET PO NR (08:40)
[2024-12-03 09:32] LABS: MEAN PLATELET VOLUME 9.3 fl (7.4-10.4); PLATELET 80 x1000/uL (130-400)
[2024-12-03] MEDS: MAGNESIUM 2 G PREMIX 50 ML IV PRN (10:04)
[2024-12-03] MEDS ORDERED: MAGNESIUM 2 G PREMIX 50 ML IV SCH (10:30)
[2024-12-03] MEDS: ALBUMIN HUMAN 25GM/100ML (25%) IV SCH (10:35)
[2024-12-03] MEDS: FUROSEMIDE 40MG/4ML VIAL IVP SCH (11:03)
[2024-12-03 11:38] LABS: BAND% 1.0 % (1.0-6.0); LYMPHOCYTES % MANUAL 3.0 % (20.0-50.0); MONOCYTES % MANUAL 5.0 % (2.0-8.0); NEUTROPHILS % MANUAL 91.0 % (45.0-75.0); PLATELET ESTIMATE DECREASED
[2024-12-03] MEDS: DEXAMETHASONE 10 MG/ML VIAL IV SCH (13:35)
[2024-12-03] MEDS: GUAIFENESIN 200MG/10ML SUGAR FREE UDC PO PRN (20:17)
[2024-12-04] VITALS (10 sets, daily range): BP systolic 101–143; BP diastolic 59–87; PULSE 71–79; RESP 16–24; TEMP 36.7–36.8; O2SAT 92–98
[2024-12-04 06:59] LABS: CREATININE 0.7 mg/dL (0.6-1.3); UREA NITROGEN BLOOD 24 mg/dL (9-23)
[2024-12-04 07:32] LABS: HEMATOCRIT. 26.7 % (42.0-52.0); HEMOGLOBIN. 8.5 g/dL (14.0-18.0); RED BLOOD CELL COUNT 3.74 mill/uL (4.7-6.1); RED CELL DISTRIBUTION WIDTH 32.8 % (11.6-14.6)
[2024-12-04 08:39] LABS: LYMPHOCYTES % MANUAL 3.0 % (20.0-50.0); MONOCYTES % MANUAL 2.0 % (2.0-8.0); NEUTROPHILS % MANUAL 95.0 % (45.0-75.0); PLATELET ESTIMATE SLIGHTLY DECREASED
[2024-12-04 08:42] LABS: MEAN PLATELET VOLUME 9.2 fl (7.4-10.4); PLATELET 79 x1000/uL (130-400)
[2024-12-04] MEDS: MIDODRINE HCL 5MG TABLET PO SCH (12:01)
[2024-12-05] VITALS: BP 110/72; PULSE 72; RESP 18; TEMP 36.7; O2SAT 97
[2024-12-05 04:00] VITALS: BP 99/58; PULSE 63; RESP 24; TEMP 36.8; O2SAT 96
[2024-12-05 08:00] VITALS: BP 122/69; PULSE 76; RESP 25; TEMP 36.3; O2SAT 99
[2024-12-05 10:18] LABS: CREATININE 0.8 mg/dL (0.6-1.3); HEMATOCRIT. 28.5 % (42.0-52.0); HEMOGLOBIN. 9.0 g/dL (14.0-18.0); RED BLOOD CELL COUNT 3.97 mill/uL (4.7-6.1); RED CELL DISTRIBUTION WIDTH 34.1 % (11.6-14.6); UREA NITROGEN BLOOD 32 mg/dL (9-23)
[2024-12-05 11:15] VITALS: BP_SYST 128; BP_SYST 142; BP_DIAS 75; BP_DIAS 96; PULSE 74; RESP 20; TEMP 97.7
[2024-12-05 12:00] VITALS: BP 128/96; PULSE 74; RESP 22; TEMP 36.3; O2SAT 100
[2024-12-05 13:28] LABS: BAND% 2.0 % (1.0-6.0); LYMPHOCYTES % MANUAL 6.0 % (20.0-50.0); MONOCYTES % MANUAL 3.0 % (2.0-8.0); NEUTROPHILS % MANUAL 89.0 % (45.0-75.0)
[2024-12-05 13:30] LABS: PLATELET ESTIMATE DECREASED
[2024-12-05 13:31] LABS: MEAN PLATELET VOLUME 9.4 fl (7.4-10.4); PLATELET 71 x1000/uL (130-400)
[2024-12-05] MEDS ORDERED: METO25TA6 PO (14:13)
[2024-12-05] MEDS ORDERED: CLAR10 PO (14:13)
[2024-12-05] MEDS ORDERED: ASPI-1160 PO (14:13)
[2024-12-05] MEDS ORDERED: AMI2 PO (14:13)
[2024-12-05] MEDS ORDERED: FERR-63 PO (14:13)
[2024-12-05] MEDS ORDERED: MIDO10TA3 MT (14:13)
[2024-12-05] MEDS ORDERED: MONT-46 PO (14:13)
[2024-12-05] MEDS ORDERED: LOSA50TA41 PO (14:13)
[2024-12-05 16:00] VITALS: BP 116/67; PULSE 71; RESP 22; TEMP 36.4; O2SAT 100
[2024-12-05] MEDS ORDERED: FAMO-135 PO (18:11)
== END 2024-12-05 17:25 | disposition home health service (06) | DRG 216 ==
LOC: ER 10:15 → 8WST 13:31 → EDBEDREQTM 13:34 → EDBEDREQ 13:34 → ENRESERV 13:51 → 5EST 11-25 15:10 → CVICU 11-29 08:52 → 3WST 12-03 16:36
PROVIDERS: ADMIT Internal Medicine; ATTEND Internal Medicine
PROC: 30233N1 Transfusion of Nonautologous Red Blood Cells into Peripheral Vein, Percutaneous Approach (ICD-10-PCS; 2024-11-25)
PROC: 4A023N6 Measurement of Cardiac Sampling and Pressure, Right Heart, Percutaneous Approach (ICD-10-PCS; 2024-11-28)
PROC: B211YZZ Fluoroscopy of Multiple Coronary Arteries using Other Contrast (ICD-10-PCS; 2024-11-28)
PROC: 02RF08Z Replacement of Aortic Valve with Zooplastic Tissue, Open Approach (ICD-10-PCS; principal; 2024-11-29)
PROC: 5A1221Z Performance of Cardiac Output, Continuous (ICD-10-PCS; 2024-11-29)
PROC: B24BZZ4 Ultrasonography of Heart with Aorta, Transesophageal (ICD-10-PCS; 2024-11-29)
PROC: 02RX08Z Replacement of Thoracic Aorta, Ascending/Arch with Zooplastic Tissue, Open Approach (ICD-10-PCS; 2024-11-29)
DX: I71.21 Aneurysm of the ascending aorta, without rupture (principal); G93.41 Metabolic encephalopathy; J96.01 Acute respiratory failure with hypoxia; J45.901 Unspecified asthma with (acute) exacerbation; I47.10 Supraventricular tachycardia, unspecified; I10 Essential (primary) hypertension; E83.39 Other disorders of phosphorus metabolism; E05.00 Thyrotoxicosis with diffuse goiter without thyrotoxic crisis or storm; D69.6 Thrombocytopenia, unspecified; H40.9 Unspecified glaucoma; J39.8 Other specified diseases of upper respiratory tract; N40.0 Benign prostatic hyperplasia without lower urinary tract symptoms; I25.118 Atherosclerotic heart disease of native coronary artery with other forms of angina pectoris; J45.990 Exercise induced bronchospasm; I48.0 Paroxysmal atrial fibrillation; E11.9 Type 2 diabetes mellitus without complications; M79.604 Pain in right leg; G89.29 Other chronic pain; E01.0 Iodine-deficiency related diffuse (endemic) goiter; D50.8 Other iron deficiency anemias; R91.1 Solitary pulmonary nodule; D72.819 Decreased white blood cell count, unspecified; D72.10 Eosinophilia, unspecified; E11.65 Type 2 diabetes mellitus with hyperglycemia; I95.1 Orthostatic hypotension; Z79.899 Other long term (current) drug therapy; Z86.16 Personal history of COVID-19; Q23.81 Bicuspid aortic valve; Z79.4 Long term (current) use of insulin; Z79.82 Long term (current) use of aspirin; I35.0 Nonrheumatic aortic (valve) stenosis
CPT/HCPCS: 36415; 36600; 70490; 71045; 71250; 71275; 80048; 80053; 80061; 80076; 80305; 81003; 82270; 82375; 82378; 82550; 82553; 82728; 82805; 82962; 83036; 83540; 83550; 83735; 83880; 84100; 84439; 84443; 84481; 84484; 85014; 85018; 85025; 85027; 85347; 85379; 85384; 85520; 86850; 86900; 86920; 87070; 87075; 93005; 93306; 93308; 93456; 93880; 93970; 94070; 94640; 94664; 97110; 97116; 97162; 97166; 97530; 97535; 98960; 99285; A4606; C1725; C1729; C1751; C1758; C1769; C1887; C1893; J0282; J0612; J0690; J0885; J1100; J1265; J1308; J1644; J1650; J1815; J1885; J1938; J2003; J2250; J2312; J2371; J2405; J2704; J2720; J2919; J3010; J3373; J3475; J3480; J3490; J7040; J7050; J7060; J7512; L3908; L8670; P9016; P9041; P9047; Q9967; A4217; C1713; J0131